=== PATIENT | female | born 1955 | race Hispanic/Latino ===

== ENCOUNTER 2018-02-23 20:07 | Emergency (ER) | payer OTHER, SELFPAY ==
[2018-02-23 20:47] LABS: #Basophils 0.1 thou/uL (0.0-0.2); #Eosinphils 0.3 thou/uL (0.0-0.7); #Lymphocytes 2.3 thou/uL (1.20-3.40); #Monocytes 0.6 thou/uL (0.11-0.59); #Neutrophils 8.6 thou/uL (1.40-6.50); %Eosinophils 2.2 % (0.0-10.0); %Lymphocytes 19.1 % (21.0-51.0); %Monocytes 5.2 % (0.0-10.0); %Neutrophils 72.4 % (42.0-75.0); Hemoglobin 12.2 g/dL (12.0-16.0); Mean Corpuscular HGB CONC 33.5 g/dL (32.0-36.0); Mean Corpuscular Volume 86.6 fL (78.0-98.0); Mean Platelet Volume 7.6 fL (7.4-10.4); Platelet Count 309 thou/uL (130-400); RBC Distribution Width 13.1 % (11.5-14.5); Red Blood Cell (RBC) Count 4.22 mill/uL (4.20-5.40); White Blood Cell (WBC) Count 11.9 thou/uL (4.8-10.8)
--- NOTE | 2018-02-23 21:00 | RAD ---
RIGHT ANKLE RADIOGRAPHS THREE VIEWS: 02/23/18 PROVIDED CLINICAL HISTORY: Ankle pain status post injury. FINDINGS: Degenerative changes are seen at the tibiotalar joint. Plantar and posterior calcaneal enthesophyte f ormation are noted. There is no evidence for fracture or other acute osseous abnormality. If there is persistent clinical concern, conservative management and followup imaging are advised. IMPRESSION: As above. POS: [facility]
[2018-02-23] MEDS ORDERED: hydrALAZINE 20 MG/ML VIAL ONE (21:02)
[2018-02-23] MEDS ORDERED: HYDROcodone/Acetaminophen 5/325 mg Tablet ONE (21:02)
[2018-02-23 21:11] LABS: ALT (SGPT) 26 U/L (8-55); AST (SGOT) 29 U/L (5-34); Albumin 4.3 g/dL (3.4-4.8); Alkaline Phosphatase 126 U/L (40-150); Anion Gap 16 mmol/L (10-20); BUN (Urea Nitrogen) 13 mg/dL (9.8-20.1); Bilirubin, Total 0.2 mg/dL (0.2-1.2); Calc. Creatinine Clearance 0 mL/min (70-130); Calcium 9.1 mg/dL (7.8-10.44); Carbon Dioxide 22 mmol/L (23-31); Chloride 109 mmol/L (98-107); Estimated GFR-MDRD 69; Globulin 4.2 g/dL (2.4-3.5); Glucose 88 mg/dL (80-115); Lipase 19 U/L (8-78); Potassium 3.7 mmol/L (3.5-5.1); Protein, Total 8.5 g/dL (6.0-8.3); Sodium 143 mmol/L (136-145)
--- NOTE | 2018-02-23 22:13 | CT ---
CT BRAIN 02/23/18 PROVIDED CLINICAL HISTORY: Trauma. Headache. FINDINGS: The ventricular system appears normal in size and morphology. There is no evidence for intracranial h emorrhage or mass effect. The extracranial soft tissues and osseous structures demonstrate an unremar kable CT appearance. IMPRESSION: No evidence for intracranial hemorrhage or mass effect. POS: [facility]
--- NOTE | 2018-02-23 22:36 | CT ---
CT CERVICAL SPINE 02/23/18 PROVIDED CLINICAL HISTORY: Neck pain status post trauma. FINDINGS: There is no evidence for fracture or traumatic subluxation. Multilevel cervical degenerative changes are seen. Extensive osseous excrescences are seen arising from the anterior aspects of the cervical s pine compatible with changes of DISH. No prevertebral soft tissue swelling is apparent. The visualize d lung apices appear clear. IMPRESSION: No evidence for fracture or traumatic subluxation. POS: [facility]
[2018-02-23] MEDS ORDERED: Ketorolac Tromethamine 30 MG/ML VIAL ONE (23:10)
--- NOTE | 2018-02-23 23:10 | CT ---
CT CHEST WITH IV CONTRAST CT ABDOMEN AND PELVIS WITH IV CONTRAST 02/23/18 PROVIDED CLINICAL HISTORY: Trauma. FINDINGS: The heart, pericardium and great vessels demonstrate no evidence for traumatic abnormality. Vascular calcification including coronal calcium is demonstrated. The lungs are free of significant opacity. T here is no pleural fluid or pneumothorax apparent. The airway appears patent and of normal caliber. N o evidence for thoracic lymph node enlargement. The solid abdominal organs demonstrate no evidence for traumatic abnormality. There is no bowel dilat ation, inflammatory fat stranding, free fluid or free air apparent. The osseous structures demonstrate no acute findings. Spinal and pelvic degenerative changes are seen . There are chronic bilateral L5 pars defects with associated grade I spondylolisthesis of L5 on S1. Sagittal and coronal thoracic and lumbar spine reconstructions demonstrate otherwise normal spinal al ignment and maintenance of vertebral body heights. IMPRESSION: No evidence for traumatic abnormality involving the chest, abdomen and pelvis. POS: [facility]
== END 2018-02-23 23:35 | disposition home or self-care (01) ==
LOC: ERS 20:07
DX: M25.571 Pain in right ankle and joints of right foot (principal); E11.9 Type 2 diabetes mellitus without complications; I10 Essential (primary) hypertension; F41.9 Anxiety disorder, unspecified; F32.9 Major depressive disorder, single episode, unspecified; W22.10XA Striking against or struck by unspecified automobile airbag, initial encounter; V89.2XXA Person injured in unspecified motor-vehicle accident, traffic, initial encounter
CPT/HCPCS: 36415; 70450; 71260; 72125; 74177; 80053; 83690; 84484; 85025; 93005; 96374; J0360; J1885